=== PATIENT | female | born 2000 ===

== ENCOUNTER 2021-06-25 14:00 | Inpatient (IN) | payer OTHER ==
[~2021-06-25] VITALS: Ht 157.5 cm; Wt 69.9 kg
[2021-07-06] MEDS ORDERED: PRENATAL CAPLE1 EAC1 PO (11:00)
== END 2021-07-08 15:29 | disposition home or self-care (01) | DRG 807 ==
LOC: LDR 07-06 07:21 → OB/GYN 07-06 16:05 → EDSEX 07-10 14:00
PROVIDERS: ADMIT Obstetrics & Gynecology; ATTEND Obstetrics & Gynecology
PROC: 10E0XZZ Delivery of Products of Conception, External Approach (ICD-10-PCS; principal; 2021-07-06)
PROC: 0UQMXZZ Repair Vulva, External Approach (ICD-10-PCS; 2021-07-06)
PROC: 10907ZC Drainage of Amniotic Fluid, Therapeutic from Products of Conception, Via Natural or Artificial Opening (ICD-10-PCS; 2021-07-06)
PROC: 3E0P7VZ Introduction of Hormone into Female Reproductive, Via Natural or Artificial Opening (ICD-10-PCS; 2021-07-06)
PROC: 4A1HXFZ Monitoring of Products of Conception, Cardiac Rhythm, External Approach (ICD-10-PCS; 2021-07-06)
DX: O71.82 Other specified trauma to perineum and vulva (principal); O99.02 Anemia complicating childbirth; D64.9 Anemia, unspecified; Z37.0 Single live birth; Z3A.39 39 weeks gestation of pregnancy